=== PATIENT | female | born 1945 | race Caucasian/White ===

== ENCOUNTER 2020-07-31 09:09 | Emergency (ER) | payer BC, MEDICARE ==
[2020-07-31] MEDS ORDERED: Boostrix 0.5 ML (Tdap) VIAL ONE (09:31)
[2020-07-31] MEDS ORDERED: Amoxicillin/Potassium Clav 875 MG TAB ONE (10:03)
--- NOTE | 2020-07-31 10:54 | RAD ---
RIGHT HAND 3 VIEWS: Date; 07/31/2020 HISTORY: Dog bite. Right hand pain and swelling. FINDINGS/IMPRESSION: There is a radiopaque ring which obscures bone detail and the shaft of the proximal phalanx of the ri ng finger. Remainder of exam demonstrates no evidence of fracture, dislocation, or bony destruction. Degenerative changes are present. No other radiopaque foreign body seen. POS: OFF
== END 2020-07-31 10:08 | disposition home or self-care (01) ==
LOC: NAV ERS 09:09
DX: S61.451A Open bite of right hand, initial encounter (principal); L03.113 Cellulitis of right upper limb; E78.5 Hyperlipidemia, unspecified; I10 Essential (primary) hypertension; Z23 Encounter for immunization; Z79.899 Other long term (current) drug therapy; W54.0XXA Bitten by dog, initial encounter
CPT/HCPCS: 90471; 90715